=== PATIENT | male | born 1975 | race Caucasian/White ===

== ENCOUNTER 2024-02-26 10:40 | Outpatient (CLI) | payer BC | END 2024-02-26 10:41 | disposition home or self-care (01) | LOC: CSHULT 10:40 | PROVIDERS: ATTEND Family Medicine | DX: R74.8 Abnormal levels of other serum enzymes (principal); R16.2 Hepatomegaly with splenomegaly, not elsewhere classified; K76.0 Fatty (change of) liver, not elsewhere classified | CPT/HCPCS: 76700 ==